=== PATIENT | female | born 1985 | race Caucasian/White ===

== ENCOUNTER → 2017-02-18 | Outpatient (CLI) | payer OTHER ==
--- NOTE | ~2017-02-18 | US98 ---
[facility] A Service of [facility] & [facility] RADIOLOGY TEXT RESULTS PATIENT: ROYER GARLAND LOCATION: [facility] : 83 UNIT #: [id number] AGE: [address]: Tanya Zapata APRN SEX: F ORDER DR: [id number] [facility] [address] [place], [place] [address] [id number] O MR#: [id number] Acc #: [id number] NAME: ROYER GARLAND : 1985 SEX: F STUDY DATE/TIME: 02/18/2017 12:47 UNIT: [facility] ROOM: STUDY DESCRIPTION: US Pelvic Non-OB Complete Attending Physician: Tanya Zapata A.P.R.N. Referring Physician: Tanya Zapata A.P.R.N. Ordering Physician: Tanya Zapata A.P.R.N. Primary Care Physician: Tanya Zapata A.P.R.N. MEDICAL IMAGING REPORT This report is preliminary unless electronic signature is present EXAM Transabdominal and transvaginal pelvic ultrasound 02/18/2017 HISTORY Right side pelvic pain and right lower quadrant abdominal pain for 1.5 weeks. FINDINGS Transabdominal and transvaginal pelvic ultrasound was performed. Endovaginal ultrasound was performed for attempted better visualization of the adnexal structures. The bladder is normal in appearance. The uterus measures 7 cm craniocaudal x 3.3 cm AP x 5.6 cm transverse. The endometrial stripe measures 8 mm. The right ovary measured 3.7 cm x 1.4 cm x 1.2 cm while the left ovary measured 2.1 cm x 1.9 cm x 2.1 cm. There is no adnexal mass. There is minimal free fluid in the pelvis. IMPRESSION Negative transabdominal and transvaginal pelvic ultrasound. Dictated by... Darrick Sarabia M.D. THIS IS AN ELECTRONICALLY VERIFIED REPORT Darrick Sarabia M.D. at 02/19/2017 8:29 AM WHIT/flynnr TD: 02/18/2017 16:08 JOB #: [id number] MEDICAL IMAGING REPORT Page 1 of 1 COPY
== END | disposition home or self-care (01) ==
LOC: CWCC 12:35
DX: R10.2 Pelvic and perineal pain (principal)
CPT/HCPCS: 76830; 76856